=== PATIENT | male | born 2000 | race Caucasian/White ===

== ENCOUNTER 2025-05-28 19:06 | Emergency (ER) | payer SELFPAY ==
[2025-05-28] MEDS ORDERED: FLUORESCEIN SODIUM 1 MG/WRAP ONE (19:31)
[2025-05-28] MEDS ORDERED: TETRACAINE HCL 0.5% 4ML OPTH ONE (19:31)
[2025-05-28] MEDS ORDERED: ERYTHROMYCIN 3.5GM OPTH OINT ONE (20:33)
--- NOTE | 2025-05-28 20:46 | EDPHYS ---
Physician Documentation [facility] [place] Name: Srinivas Washburn Age: 24 yrs Sex: Male : 2000 Arrival Date: 05/28/2025 Time: 19:06 Bed 7 Private MD: ED Physician Blake Mancera HPI: 05/28 20:35 This 24 yrs old Male presents to ER via Ambulatory with complaints of Foreign amy Body In Eye. 20:35 The patient is experiencing foreign body sensation, pain, The patient sustained an amy abrasion, fb. Onset: The symptoms/episode began/occurred 1 day(s) ago. Duration: the symptoms are continuous. Aggravated by nothing. Alleviated by blinking. Associated signs and symptoms: Pertinent positives: None. Pertinent negatives: None. Patient does not utilize any form of vision correction. Severity of symptoms: At their worst the symptoms were mild moderate in the emergency department the symptoms are unchanged. The patient has not experienced similar symptoms in the past. Historical: - Allergies: 19:35 No Known Allergies; al5 - PMHx: 19:35 None; al5 - PSHx: 19:35 None; al5 - Immunization history:: Adult Immunizations up to date. - Infectious Disease History:: Denies. - Social history:: Smoking status: Patient denies any tobacco usage or history of. - Family history:: not pertinent. ROS: 20:40 Constitutional: Negative for fever, chills, and weight loss, ENT: Negative for injury, amy pain, and discharge, Neck: Negative for injury, pain, and swelling, Cardiovascular: Negative for chest pain, palpitations, and edema, Respiratory: Negative for shortness of breath, cough, wheezing, and pleuritic chest pain, Abdomen/GI: Negative for abdominal pain, nausea, vomiting, diarrhea, and constipation, Back: Negative for injury and pain, : Negative for injury, bleeding, discharge, and swelling, MS/Extremity: Negative for injury and deformity, Skin: Negative for injury, rash, and discoloration, Neuro: Negative for headache, weakness, numbness, tingling, and seizure, Psych: Negative for depression, anxiety, suicide ideation, homicidal ideation, and hallucinations, Allergy/Immunology: Negative for hives, rash, and allergies, Endocrine: Negative for neck swelling, polydipsia, polyuria, polyphagia, and marked weight changes, Hematologic/Lymphatic: Negative for swollen nodes, abnormal bleeding, and unusual bruising, 20:40 Eyes: Positive for foreign body sensation, pain, of the iris of right eye, Exam: 20:40 Constitutional: This is a well developed, well nourished patient who is awake, alert, amy and in no acute distress. Head/Face: Normocephalic, atraumatic. ENT: Nares patent. No nasal discharge, no septal abnormalities noted. Tympanic membranes are normal and external auditory canals are clear. Oropharynx with no redness, swelling, or masses, exudates, or evidence of obstruction, uvula midline. Mucous membranes moist. Neck: Trachea midline, no thyromegaly or masses palpated, and no cervical lymphadenopathy. Supple, full range of motion without nuchal rigidity, or vertebral point tenderness. No Meningismus. Chest/axilla: Normal chest wall appearance and motion. Nontender with no deformity. No lesions are appreciated. Cardiovascular: Regular rate and rhythm with a normal S1 and S2. No gallops, murmurs, or rubs. Normal PMI, no JVD. No pulse deficits. Respiratory: Lungs have equal breath sounds bilaterally, clear to auscultation and percussion. No rales, rhonchi or wheezes noted. No increased work of breathing, no retractions or nasal flaring. Abdomen/GI: Soft, non-tender, with normal bowel sounds. No distension or tympany. No guarding or rebound. No evidence of tenderness throughout. Back: No spinal tenderness. No costovertebral tenderness. Full range of motion. Skin: Warm, dry with normal turgor. Normal color with no rashes, no lesions, and no evidence of cellulitis. MS/ Extremity: Pulses equal, no cyanosis. Neurovascular intact. Full, normal range of motion., bilateral aka Neuro: Awake and alert, GCS 15, oriented to person, place, time, and situation. Cranial nerves II-XII grossly intact. Motor strength 5/5 in all extremities. Sensory grossly intact. Cerebellar exam normal. Normal gait. Psych: Awake, alert, with orientation to person, place and time. Behavior, mood, and affect are within normal limits. Vital Signs: 19:33 BP 134 / 82; Pulse 63; Resp 16; Temp 98(O); Pulse Ox 99% on R/A; Weight 81.65 kg; al5 Height 6 ft. 4 in. ; Pain 3/10; 20:48 BP 132 / 92; Pulse 77; Resp 16; Pulse Ox 100% on R/A; dd2 19:33 Body Mass Index 21.91 (81.65 kg, 193.04 cm) al5 19:33 Pain Scale: Adult al5 Accident Coma Score: 20:40 Eye Response: spontaneous(4). Motor Response: obeys commands(6). Verbal Response: amy oriented(5). Total: 15. Visual Acuity: 19:37 Left Eye Visual acuity 20/13, ; Right Eye Visual acuity 20/13, ; Both Eyes Visual al5 acuity 20/13; With Lenses; Procedures: 20:44 Foreign Body Removal: a metal shaving, from the right eye, by using a cotton-tipped [facility] swab, needle, Dressing: eye pad was placed, The patient tolerated the removal well, partial removal. MDM: 19:17 Medical Screening Exam initiated [facility] 20:45 Differential diagnosis: Corneal abrasion of Corneal ulcer of Foreign body in right eye. [facility] Data reviewed: vital signs, nurses notes. Consideration of Admission/Observation Escalation of care including admission/observation considered. I considered the following discharge prescriptions or medication management in the emergency department Medications were administered in the Emergency Department. See MAR. External Records Reviewed: none. 20:47 ED course: dr wakefield tomorrow at 1pm. [facility] 05/28 19:38 Order name: Fluoresene Opth strip; Complete Time: 19:38 [facility] 05/28 19:38 Order name: Eye Tray; Complete Time: 19:38 [facility] 05/28 20:38 Order name: Misc. Order: patch; Complete Time: 20:48 amy Administered Medications: 20:48 Drug: ERYTHromycin Ophthalmic Ointment 1 application Ophthalmic once Route: Ophthalmic; dd2 Site: right eye; 20:50 Follow up: Response: No adverse reaction al5 20:53 Drug: Tetracaine Ophthalmic Drops 0.5 % 1 drops Ophthalmic once Route: Ophthalmic; dd2 Site: right eye; Disposition Summary: 05/28/25 20:46 Discharge Ordered Notes: Location: Home amy Problem: new amy Symptoms: have improved amy Condition: Stable amy Diagnosis - Foreign body in cornea, right eye amy Followup: amy - With: Harsh Wakefield MD - When: 2 - 3 days - Reason: Recheck today's complaints, Re-evaluation by your physician Discharge Instructions: - Discharge Summary Sheet amy - Corneal Abrasion amy - Eye Foreign Body amy - Corneal Abrasion, [id number] amy - Eye Foreign Body, [id number] [facility] Forms: - Medication Reconciliation Form [facility] - Antibiotic Education amy - Prescription Opioid Use amy - Patient Portal Instructions [facility] - Leadership Thank You Letter [facility] Prescriptions: - Ibuprofen 600 mg Oral Tablet - take 1 tablet ORAL route every 6 hours As needed take with food; 30 tablet; [facility] Refills: 0, Product Selection Permitted - Erythromycin 5 mg/gram (0.5 %) Ophthalmic ointment - apply 1 centimeter OPHTHALMIC route 2-3 times daily for 7 days; 3.5 gram tube; [facility] Refills: 0, Product Selection Permitted - Tylenol-Codeine #3 300mg-30mg Oral tablet - take 2 tablets ORAL route every 6 hours As needed; 20 tablet; Refills: 0, [facility] Product Selection Permitted Signatures: Blake Mancera MD MD cha Langhorst, Amanda RN RN al5 MARISELA ABURTO RN RN dd2
--- NOTE | 2025-05-28 20:46 | ER ---
Nurse's Notes [facility] [place] Name: Srinivas Washburn Age: 24 yrs Sex: Male : 2000 Arrival Date: 05/28/2025 Time: 19:06 Bed 7 Private MD: Diagnosis: Foreign body in cornea, right eye Presentation: 05/28 19:33 Chief complaint: Patient states: patient was grinding metal yesterday around 1400 and al5 spark hit his R eye. patient went to urgent care today and was able to get a small piece of the metal removed at about 1800 today and was told to come to the ER. Coronavirus screen: At this time, the client does not indicate any symptoms associated with coronavirus-19. Ebola Screen: No symptoms or risks identified at this time. Initial Sepsis Screen: Does the patient meet any 2 criteria? No. Patient's initial sepsis screen is negative. Does the patient have a suspected source of infection? No. Patient's initial sepsis screen is negative. Risk Assessment: Do you want to hurt yourself or someone else? Patient reports no desire to harm self or others. Onset of symptoms was May 27, 2025. 19:33 Method Of Arrival: Ambulatory al5 19:33 Acuity: ALFRED 4 al5 Triage Assessment: 19:35 General: Appears in no apparent distress. uncomfortable, well groomed, well developed, al5 Behavior is calm, cooperative. Pain: Complains of pain in right eye Pain currently is 3 out of 10 on a pain scale. EENT: Eyes redness to R eye noted. Neuro: Level of Consciousness is awake, alert, obeys commands, Oriented to person, place, time, situation. Cardiovascular: Patient's skin is warm and dry. Respiratory: Airway is patent Respiratory effort is even, unlabored, Respiratory pattern is regular, symmetrical. GI: No signs and/or symptoms were reported involving the gastrointestinal system. : No signs and/or symptoms were reported regarding the genitourinary system. Derm: Skin is intact, is healthy with good turgor, Skin is pink, warm \T\ dry. normal. Musculoskeletal: Circulation, motion, and sensation intact. Range of motion: intact in all extremities. Historical: - Allergies: 19:35 No Known Allergies; al5 - PMHx: 19:35 None; al5 - PSHx: 19:35 None; al5 - Immunization history:: Adult Immunizations up to date. - Infectious Disease History:: Denies. - Social history:: Smoking status: Patient denies any tobacco usage or history of. - Family history:: not pertinent. Screenin:36 [facility] ED Fall Risk Assessment (Adult) History of falling in the last 3 months, al5 including since admission No falls in past 3 months (0 pts) Confusion or Disorientation No (0 pts) Intoxicated or Sedated No (0 pts) Impaired Gait No (0 pts) Mobility Assist Device Used No (0 pt) Altered Elimination No (0 pt) Score/Fall Risk Level 0 - 2 = Low Risk Oriented to surroundings, Maintained a safe environment, Hourly rounding (assess needs \T\ fall precautionary measures) done. Abuse screen: Denies threats or abuse. Denies injuries from another. Nutritional screening: No deficits noted. Tuberculosis screening: No symptoms or risk factors identified. Assessment: 19:36 Reassessment: see triage assessment. al5 20:50 Reassessment: Patient appears in no apparent distress at this time. No changes from al5 previously documented assessment. Patient and/or family updated on plan of care and expected duration. Pain level reassessed. Patient is alert, oriented x 3, equal unlabored respirations, skin warm/dry/pink. Vital Signs: 19:33 BP 134 / 82; Pulse 63; Resp 16; Temp 98(O); Pulse Ox 99% on R/A; Weight 81.65 kg; al5 Height 6 ft. 4 in. ; Pain 3/10; 20:48 BP 132 / 92; Pulse 77; Resp 16; Pulse Ox 100% on R/A; dd2 19:33 Body Mass Index 21.91 (81.65 kg, 193.04 cm) al5 19:33 Pain Scale: Adult al5 Visual Acuity: 19:37 Left Eye Visual acuity 20/13, ; Right Eye Visual acuity 20/13, ; Both Eyes Visual al5 acuity 20/13; With Lenses; Jennifer Coma Score: 20:40 Eye Response: spontaneous(4). Motor Response: obeys commands(6). Verbal Response: amy oriented(5). Total: 15. ED Course: 19:13 Patient arrived in ED. gm2 19:17 Blake Mancera MD is Attending Physician. amy 19:33 Annika Dominguez, RN is Primary Nurse. al5 19:35 Triage completed. al5 19:35 Arm band placed on right wrist. Patient placed in the treatment room, in view of staff al5 members, on pulse oximetry. 19:36 Patient has correct armband on for positive identification. Bed in low position. Call al5 light in reach. Side rails up X 1. Provided Education on: plan of care. 19:36 Patient did not have IV access during this emergency room visit. al5 20:45 Harsh Fernando MD is Referral Physician. [facility] 20:48 Assist provider with eye exam of right eye. using fluorescein stain, Performed by Blake dd2 Calderon HERNANDEZ Dressed with eye patch Patient tolerated well. Administered Medications: 20:48 Drug: ERYTHromycin Ophthalmic Ointment 1 application Ophthalmic once Route: Ophthalmic; dd2 Site: right eye; 20:50 Follow up: Response: No adverse reaction al5 20:53 Drug: Tetracaine Ophthalmic Drops 0.5 % 1 drops Ophthalmic once Route: Ophthalmic; dd2 Site: right eye; Medication: 19:36 VIS not applicable for this client. al5 Outcome: 20:46 Discharge ordered by . [facility] 20:50 Discharged to home ambulatory, al5 20:50 Condition: good 20:50 Discharge instructions given to patient, Instructed on discharge instructions, follow up and referral plans. Demonstrated understanding of instructions, follow-up care, 20:59 Patient left the ED. dd2 Signatures: Blake Mancera MD MD cha Mitchell, Ginger [facility] Annika Dominguez RN RN al5 MARISELA ABURTO RN RN dd2 Corrections: (The following items were deleted from the chart) 19:35 19:33 Chief complaint: Patient states: patient was grinding metal yesterday around 2 pm al5 and spark hit his R eye. patient went to urgent care today and was able to get a small piece of the metal removed at about 1800 today and was told to come to the ER al5
[2025-05-28 21:31] VITALS: TEMP 98
[2025-05-28 21:32] VITALS: BP 132/92; O2SAT 100
== END 2025-05-28 20:59 | disposition home or self-care (01) ==
LOC: ER 19:06
DX: T15.01XA Foreign body in cornea, right eye, initial encounter (principal)
CPT/HCPCS: 99284